=== PATIENT | female | born 1960 | race Caucasian/White ===

== ENCOUNTER 2024-04-01 07:33 | Emergency (ER) | payer MEDICARE ==
[~2024-04-01] VITALS: Ht 149.9 cm; Wt 78.7 kg
[2024-04-01] MEDS: CLINDAMYCIN IVPB 600MG/50ML 50 ML IV STA (07:38)
[2024-04-01] MEDS: Solu-medROL 125MG VIAL IVP ONE (08:00)
[2024-04-01 08:57] LABS: BASOPHILS # (AUTO) 0.06 K/uL (0.00-0.20); BASOPHILS % (AUTO) 0.3 % (0.0-5.0); EOSINOPHILS # (AUTO) 0.03 K/uL (0.00-0.70); EOSINOPHILS % (AUTO) 0.1 % (0.0-8.0); HEMATOCRIT 32.6 % (36-48); IMMATURE GRANULOCYTE ABSOLUTE 0.33 K/uL (0-1); LYMPHOCYTES # (AUTO) 0.8 K/uL (1.0-4.8); LYMPHOCYTES % (AUTO) 3.3 % (21.0-51.0); MEAN CORPUSCULAR HEMOGLOBIN 28.7 pg (27.0-33.0); MEAN CORPUSCULAR HGB CONC 34.4 g/dL (32.0-36.0); MEAN CORPUSCULAR VOLUME 83.6 fL (79-99); MONOCYTES # (AUTO) 1.2 K/uL (0.1-1.0); MONOCYTES % (AUTO) 5.4 % (3.0-13.0); NEUTROPHILS # (AUTO) 20.4 K/uL (1.8-7.7); NEUTROPHILS % (AUTO) 89.5 % (40.0-77.0); PLATELET COUNT (AUTO) 383 K/uL (130-400); RED CELL DISTRIBUTION WIDTH 13.2 % (11.0-15.5); WHITE BLOOD COUNT (AUTO) 22.8 K/uL (4.8-10.8)
[2024-04-01 09:09] LABS: CREATININE 1.3 mg/dL (0.5-1.0); POTASSIUM 4.3 mmol/L (3.5-5.1)
--- NOTE | 2024-04-01 09:25 | ERN ---
General Chief Complaint: Face Pain/Problem Stated Complaint: L FACE SWELLING Time Seen by MD: 07:34 Source: patient History of Present Illness Initial Comments Patient is a 64-year-old female coming in to be evaluated for left facial swelling. Per patient she had a tooth extracted and started noticing swelling couple of days shortly after. Patient states that she has some discomfort in the left facial area in his unable to completely open her mouth. Allergies: Coded Allergies: No Known Drug Allergies (Unverified Allergy, Unknown, 04/01/24) Past Medical History Past Medical History: GERD, Hypertension Past Surgical History: Cholecystectomy Female( History) : 0 Para: 0 Aborts: 0 ROS Dictation CONSTITUTIONAL: No chills, no fever, no weakness, no diaphoresis, no malaise. HEAD/FACE: No signs of trauma. EENT: No eye pain, no blurred vision, no tearing, no double vision, no ear pain, no ear discharge, no nose pain, no nasal congestion, no throat pain, no throat swelling, no mouth pain. RESPIRATORY: No cough, no orthopnea, no SOB, no stridor, no wheezing. CARDIOVASCULAR: No chest pain, no edema, no palpitations, no syncope. GASTROINTESTINAL/ABDOMINAL: No abdominal pain, no constipation, no diarrhea, no nausea, no vomiting. GENITOURINARY: No abnormal discharge, no dysuria, no frequent urination, no hematuria. No complaints of pain in the genitals. MUSCULOSKELETAL: No back pain, no gout, no joint pain, no joint swelling, no muscle pain, no muscle stiffness, no neck pain. INTEGUMENTARY: No change in color, no change in hair/nails, no dryness, no lesion, no lumps, no rash. NEUROLOGICAL/PSYCH: No anxiety, not depressed, no emotional problem, no headache, no numbness, no pre-existing deficit, no history of seizures, no tremors, no weakness. HEMATOLOGIC/LYMPHATIC: Not anemic, no history of blood clots, no apparent bleeding, no bruising, glands not swollen. All Systems Negative, Except as Noted. Physical Exam Physical Exam Dictation VITAL SIGNS: Reviewed. GENERAL APPEARANCE: Alert, oriented x3, no acute distress, obese. HEAD AND FACE: Non-traumatic. Left facial swelling EYES: PERRL, pink conjunctivas, eyelid no trauma, anterior chamber clear. EARS: Pinnas intact and no signs of trauma or erythema. Ear canals clear and no discharge. TMs no erythema. NOSE: No discharge, no bleeding. OROPHARYNX: Mouth normal, teeth no caries, tongue pink. Pharynx clear, no erythema. Tonsils no exudates, no abscesses noted. Mucous membrane moist. NECK: Supple, non-tender, no thyromegaly, no masses, no JVD, no bruits. BREAST: Deferred. CHEST: No tenderness, no crepitus, no paradoxical movement, no retractions. LUNGS: Clear, well-ventilated, symmetric, no rales, no wheezing, no rhonchi, no stridor, good breath sounds bilaterally. HEART: Regular rate, regular rhythm, no murmur, no gallops. VASCULAR: No peripheral edema. ABDOMEN: Soft, positive bowel sounds, nondistended, no guarding, nontender, no rebound, no masses no hepatomegaly, no splenomegaly, no Puentes's sign, no hernias. RECTAL: Deferred. GENITAL: Deferred. NEUROLOGICAL: Normal speech, gross motor function intact, gross sensory function intact. MUSCULOSKELETAL: Neck nontender, full range of motion, back nontender, full range of motion. EXTREMITIES: Nontender, full range of motion. SKIN: Color pink, dry, no turgor, no rash, no lacerations, no abrasions, no contusions. LYMPHATICS: Deferred. Results Laboratory and Microbiology Lab and Micro Result Laboratory Tests Test 04/01/24 08:40 04/01/24 09:42 04/01/24 11:00 White Blood Count 22.8 K/uL (4.8-10.8) H Red Blood Count 3.90 MIL/uL (4.00-5.50) L Hemoglobin 11.2 g/dL (12.0-16.0) L Hematocrit 32.6 % (36-48) L Mean Corpuscular Volume 83.6 fL (79-99) Mean Corpuscular Hemoglobin 28.7 pg (27.0-33.0) Mean Corpuscular Hemoglobin Concent 34.4 g/dL (32.0-36.0) Red Cell Distribution Width 13.2 % (11.0-15.5) Platelet Count 383 K/uL (130-400) Mean Platelet Volume 8.8 fL (7.5-10.5) Immature Granulocyte % (Auto) 1.4 % (0-1) H Neutrophils (%) (Auto) 89.5 % (40.0-77.0) H Lymphocytes (%) (Auto) 3.3 % (21.0-51.0) L Monocytes (%) (Auto) 5.4 % (3.0-13.0) Eosinophils (%) (Auto) 0.1 % (0.0-8.0) Basophils (%) (Auto) 0.3 % (0.0-5.0) Neutrophils # (Auto) 20.4 K/uL (1.8-7.7) H Lymphocytes # (Auto) 0.8 K/uL (1.0-4.8) L Monocytes # (Auto) 1.2 K/uL (0.1-1.0) H Eosinophils # (Auto) 0.03 K/uL (0.00-0.70) Basophils # (Auto) 0.06 K/uL (0.00-0.20) Absolute Immature Granulocyte (auto 0.33 K/uL (0-1) Segmented Neutrophils % 72 % (40-70) H Band Neutrophils % 19 % (0-2) H Lymphocytes % (Manual) 4 % (22-44) L Monocytes % (Manual) 5 % (2-9) Nucleated Red Blood Cells 0.0 % (0.0-0.19) Differential Comment MANUAL DIFFERENTIAL White Cell Morphology Comment CONSISTENT W/DIFF Platelet Morphology Comment ADEQUATE Red Blood Cell Morphology ANISO 1+ Sodium Level 126 mmol/L (136-145) L Potassium Level 4.3 mmol/L (3.5-5.1) Chloride Level 91 mmol/L (101-111) L Carbon Dioxide Level 22 mmol/L (21-32) Blood Urea Nitrogen 19 mg/dL (7-18) H Creatinine 1.3 mg/dL (0.5-1.0) H Glomerular Filtration Rate Calc 45 mL/min (>90) Random Glucose 142 mg/dL (70-105) H Total Calcium 10.3 mg/dL (8.5-10.1) H Lactic Acid Level 1.2 mmol/L (0.8-2.5) Total Creatine Kinase 85 U/L (21-232) Troponin I High Sensitivity 8 ng/L (4-50) Urine Color YELLOW (YELLOW) Urine Appearance CLEAR (CLEAR) Urine pH 6.0 (5.0-8.0) Urine Specific [place] 1.033 (1.001-1.031) Urine Protein 20 mg/dL (NEGATIVE) H Urine Glucose (UA) NEGATIVE mg/dL (NEGATIVE) Urine Ketones 5 mg/dL (NEGATIVE) H Urine Occult Blood SMALL (NEGATIVE) H Urine Nitrate NEGATIVE (NEGATIVE) Urine Bilirubin NEGATIVE mg/dL (NEGATIVE) Urine Urobilinogen 0.2 mg/dL (0.2-1.0) Urine Leukocyte Esterase NEGATIVE Liset/uL Urine RBC 2-5 /HPF (0-1) H Urine WBC 2-5 /HPF (0-1) H Urine Squamous Epithelial Cells RARE /HPF (0-2) Urine Bacteria RARE /HPF (None Seen) Labs Reviewed?: Yes EKG/XRAY/US/CT/MRI CT Scan Comment [address] [place] [address] IMAGING REPORT Signed PATIENT: SALLY PULLIAM MR#: [id number] : 1960 SEX: F AGE: 64 LOCATION: [facility] ORDER 0 STATUS: [facility] REPORT#: [id number] SERVICE 8 REASON: left facial swelling ORDERING PHYSICIAN: BLANE GA MD PROCEDURE: NKSOFTI W - CT NECK SOFT TISS W/CONTRAST CT NECK SOFT TISS W/CONTRAST REASON: left facial swelling COMPARISON: None TECHNIQUE: Axial images are obtained from skull base through the thoracic inlet following IV contrast, 50 cc Omnipaque 350. FINDINGS: There is diffuse left-sided soft tissue swelling. This is epicentered lateral to the posterior portion of the mandible and extends to inferior to the angle of the mandible. The swelling is anterior to the sternocleidomastoid muscle, the swelling also involves the left parotid gland. There is a poorly defined area of decreased attenuation beginning lateral to the posterior body of the mandible. This extends posteriorly and inferiorly, wrapping around the angle of the mandible. There is poorly defined low-attenuation medial or in side of the left body of the mandible. This appears to cross midline anteriorly, there is a better defined focal fluid collection base of the tongue and inferiorly on the right. This measures 2.2 x 1.9 cm axial dimension and 1.8 cm superior to inferior. Tonsillar soft tissues appear normal as do parapharyngeal soft tissues. There is marked enlargement of the right lobe of the thyroid gland, at 3.8 x 5.3 cm, this contains coarse calcifications, this extends inferiorly into the superior mediastinum, findings are consistent with goiter. Airway structures appear intact. Lung apices are clear. Exam appears otherwise unremarkable. IMPRESSION: 1. Extensive left-sided soft tissue swelling along the mandible. 2. There is poorly defined decreased attenuation present below inside and outside of the mandible at the level of the angle, best defined extending anteriorly between the base of the tongue and mandible, appearance is consistent with phlegmon or developing abscess. 3. There is a well-defined focal abscess on the right measuring 1.9 x 2.2 x 1.8 cm, present to just medial and inferior to the mandible lateral to the base of the tongue. 4. Marked enlarged right lobe of the thyroid with coarse calcifications, probable goiter, thyroid ultrasound recommended for full evaluation. DICTATED BY: DILLAN PEOPLES MD DATE: 04/01/241017 ELECTRONICALLY SIGNED BY: DILLAN PEOPLES MD DATE: 04/01/[address] [address] IMAGING REPORT Signed PATIENT: SALLY PULLIAM MR#: [id number] : 1960 SEX: F AGE: 64 LOCATION: [facility] ORDER 0 STATUS: [facility] REPORT#: [id number] SERVICE 8 REASON: left facial swelling ORDERING PHYSICIAN: BLANE GA MD PROCEDURE: MAXFACI W - CT MAXILLOFACIAL W/CONTRAST CT MAXILLOFACIAL W/CONTRAST REASON: left facial swelling COMPARISON: None TECHNIQUE: Axial images are obtained from skull base to through the mandible and base of the neck. Sagittal and coronal reconstruction images were performed. Exam was performed following IV contrast, 50 cc Omnipaque 350. FINDINGS: There is extensive soft tissue swelling surrounding the left ankle of the mandible. There are some poorly defined decreased attenuation both medial and lateral to the angle of the mandible, this may represent a phlegmon and/or developing abscess, there is no discrete drainable abscess present at this time. There is a well described focal fluid collection lateral base of the tongue on the right, inferior to the body of the mandible, 1.5 x 1.9 x 2.0 cm. There are no other discrete focal fluid collections. There is diffuse swelling and subcutaneous soft tissues. The airway appears intact. Tonsillar fossa is appear unremarkable. Remaining facial soft tissues appear normal. Marked enlargement of the right lobe of the thyroid is again noted, only partially visualized, thyroid ultrasound recommended in this regard. IMPRESSION: 1. Well defined focal fluid collection in the in the floor the mouth on the right 1.9 x 2.0 cm, consistent with abscess. 2. Marked soft tissue swelling on the left with poorly defined areas of decreased attenuation, consistent with phlegmon and possible developing abscess, no drainable collections identified on the left. 3. Enlarged right lobe of the thyroid consistent with goiter, only partially visualized on this exam. DICTATED BY: DILLAN PEOPLES MD DATE: 04/01/24 1023 ELECTRONICALLY SIGNED BY: DILLAN PEOPLES MD DATE: 04/01/24 1031 MDM MDM: Differential diagnosis: Status post to be six traction, sepsis, mandibular abscess on the right and left mandibular abscess as well, right lobe thyroid calcification Rationale: Tests considered and ordered secondary to shared decision making include: labs, ECG and radiology Previous outside records reviewed: Old ER visits. Risk of complication and/or morbidity or mortality of patient management: None Medications-Per medication reconciliation Need for hospitalization: Patient does meet criteria for hospitalization. Need for emergency major/minor surgery: No There are no social concerns with this patient. Prescription drug management Prescriptions will include symptomatic care Patient's prior external medical records from other ER visits were reviewed by me as indicated. Prior testing and results from previous visits were reviewed. Prior tests were taken into account with medical decision making and resource utilization, independent historian/historians were used to obtain complete medical history. I independently interpreted the test that were performed, results were reviewed by me and considered findings on radiology if ordered. Medical management and examination interpretation discussions were had by me with other qualified healthcare professionals as indicated for the patient's care. I advised patient on current findings which are sepsis and mandibular abscess bilateral current plan is to admit but due to the fact that there is no oral maxillary [place] patient will be transferred to ED Course Orders Procedure Category Date Status Time Cbc With Differential LAB 04/01/24 Complete 07:37 Basic Metabolic Panel LAB 04/01/24 Complete 07:37 Methylprednisolone PHA 04/01/24 Complete Succ 125mg (Solu-Medr 08:00 Clindamycin Ivpb PHA 04/01/24 Complete 600mg/50ml (Cleocin 07:[address] 04/01/24 Resulted W/Contrast 09:[address] T[address] CT 04/01/24 Resulted W/Contrast 09:19 Blood Cult VERNON 04/01/24 In Process 09:26 Urinalysis Profile LAB 04/01/24 Complete 09:26 Culture Urine VERNON 04/01/24 In Process 09:26 0.9%Nacl 1000ml (Ns PHA 04/01/24 Complete 1000ml) 09:30 Creatine Kinase, Total LAB 04/01/24 Complete 09:26 Troponin I High LAB 04/01/24 Complete Sensitivity 09:26 Lactic Acid LAB 04/01/24 Complete 09:26 Iohexol (Omnipaque) PHA 04/01/24 Complete 09:50 Manual Differential LAB 04/01/24 Complete 08:40 Vancomycin 1g/250ml PHA 04/01/24 Complete Kit (Vancomycin 1g/2 14:00 Vancomycin Protocol PHA 04/01/24 In Process (Vancomycin Protocol 14:00 Vancomycin 1g/250ml PHA 04/01/24 Complete Kit (Vancomycin 1g/2 15:00 Vancomycin 1g/250ml PHA 04/02/24 In Process Kit (Vancomycin 1g/2 14:00 Vancomycin Trough LAB 04/03/24 Verified 13:00 Ketorolac PHA 04/01/24 Complete Tromethamine 30mg/Ml 14:30 Current Medications Medications (Trade) Dose Ordered Sig/Guy Route PRN Reason Start Time Stop Time Status Last Admin Dose Admin Clindamycin HCl/ Dextrose 50 ml @ 100 mls/hr Q8H STAT IV 04/01/24 07:38 04/01/24 08:07 DC 04/01/24 07:38 Iohexol (Omnipaque) 35,000 mg STK-MED ONCE IV 04/01/24 09:50 04/01/24 09:50 DC Ketorolac Tromethamine (toRADol) 30 mg ONCE ONCE IVP 04/01/24 14:30 04/01/24 14:31 DC 04/01/24 14:47 Methylprednisolone Sodium Succinate (Solu-medROL 125MG) 125 mg ONCE ONCE IVP 04/01/24 08:00 04/01/24 08:01 DC 04/01/24 08:00 Sodium Chloride 2,361 ml @ 787 mls/hr ONCE ONCE IV 04/01/24 09:30 04/01/24 12:29 DC 04/01/24 10:14 Vancomycin HCl 250 ml @ 125 mls/hr Q24H IV 04/02/24 14:00 04/12/24 13:59 Vancomycin HCl 250 ml @ 250 mls/hr ONCE ONCE IV 04/01/24 15:00 04/01/24 15:59 DC Vancomycin HCl (Vancomycin Protocol) 1 each AD IV 04/01/24 14:00 04/15/24 13:59 Vancomycin HCl (Vancomycin 1g/ 250ml Kit) 1 gm ONCE ONCE IV 04/01/24 14:00 04/01/24 14:01 DC 04/01/24 13:58 Vital Signs Date Time Temp Pulse Resp B/P (MAP) Pulse Ox O2 Delivery O2 Flow Rate FiO2 04/01/24 18:10 98.8 87 18 110/62 97 Room Air* 0 04/01/24 16:00 98.4 98 18 107/53 99 Room Air* 0 04/01/24 14:21 99.0 104 18 116/65 97 Room Air* 0 04/01/24 12:00 101 18 112/65 97 Room Air* 0 04/01/24 11:00 99.7 100 18 110/66 99 Room Air* 0 04/01/24 09:00 99.7 104 18 104/62 98 Room Air* 0 04/01/24 07:35 100.2 110 16 113/60 98 Room Air* 0 04/01/24 07:35 100.6 110 16 113/60 98 Room Air 0 DX & DISP Disposition: Other(Comment) (PATIENT CARE TRANSITIONED TO DR. NO) Departure Condition: Stable Referrals: NONE (PCP) BLANE GA MD Apr 01, 2024 09:25
[2024-04-01] MEDS ORDERED: IOHEXOL 350 MG/ML 100ML INFUS..BTL IV ONE (09:50)
[2024-04-01] MEDS: [UNRECOGNIZED DRUG - OTHER] IV ONE (10:14)
--- NOTE | 2024-04-01 10:26 | HMCIMG ---
CT NECK SOFT TISS W/CONTRAST REASON: left facial swelling COMPARISON: None TECHNIQUE: Axial images are obtained from skull base through the thoracic inlet following IV contrast, 50 cc Omnipaque 350. FINDINGS: There is diffuse left-sided soft tissue swelling. This is epicentered lateral to the posterior portion of the mandible and extends to inferior to the angle of the mandible. The swelling is anterior to the sternocleidomastoid muscle, the swelling also involves the left parotid gland. There is a poorly defined area of decreased attenuation beginning lateral to the posterior body of the mandible. This extends posteriorly and inferiorly, wrapping around the angle of the mandible. There is poorly defined low-attenuation medial or in side of the left body of the mandible. This appears to cross midline anteriorly, there is a better defined focal fluid collection base of the tongue and inferiorly on the right. This measures 2.2 x 1.9 cm axial dimension and 1.8 cm superior to inferior. Tonsillar soft tissues appear normal as do parapharyngeal soft tissues. There is marked enlargement of the right lobe of the thyroid gland, at 3.8 x 5.3 cm, this contains coarse calcifications, this extends inferiorly into the superior mediastinum, findings are consistent with goiter. Airway structures appear intact. Lung apices are clear. Exam appears otherwise unremarkable. IMPRESSION: 1. Extensive left-sided soft tissue swelling along the mandible. 2. There is poorly defined decreased attenuation present below inside and outside of the mandible at the level of the angle, best defined extending anteriorly between the base of the tongue and mandible, appearance is consistent with phlegmon or developing abscess. 3. There is a well-defined focal abscess on the right measuring 1.9 x 2.2 x 1.8 cm, present to just medial and inferior to the mandible lateral to the base of the tongue. 4. Marked enlarged right lobe of the thyroid with coarse calcifications, probable goiter, thyroid ultrasound recommended for full evaluation.
--- NOTE | 2024-04-01 10:31 | HMCIMG ---
CT MAXILLOFACIAL W/CONTRAST REASON: left facial swelling COMPARISON: None TECHNIQUE: Axial images are obtained from skull base to through the mandible and base of the neck. Sagittal and coronal reconstruction images were performed. Exam was performed following IV contrast, 50 cc Omnipaque 350. FINDINGS: There is extensive soft tissue swelling surrounding the left ankle of the mandible. There are some poorly defined decreased attenuation both medial and lateral to the angle of the mandible, this may represent a phlegmon and/or developing abscess, there is no discrete drainable abscess present at this time. There is a well described focal fluid collection lateral base of the tongue on the right, inferior to the body of the mandible, 1.5 x 1.9 x 2.0 cm. There are no other discrete focal fluid collections. There is diffuse swelling and subcutaneous soft tissues. The airway appears intact. Tonsillar fossa is appear unremarkable. Remaining facial soft tissues appear normal. Marked enlargement of the right lobe of the thyroid is again noted, only partially visualized, thyroid ultrasound recommended in this regard. IMPRESSION: 1. Well defined focal fluid collection in the in the floor the mouth on the right 1.9 x 2.0 cm, consistent with abscess. 2. Marked soft tissue swelling on the left with poorly defined areas of decreased attenuation, consistent with phlegmon and possible developing abscess, no drainable collections identified on the left. 3. Enlarged right lobe of the thyroid consistent with goiter, only partially visualized on this exam.
[2024-04-01 10:51] LABS: BAND NEUTROPHILS % (MANUAL) 19 % (0-2); LYMPHOCYTES % (MANUAL) 4 % (22-44); MAN.DIFF COMMENT-IMPRESSION MANUAL DIFFERENTIAL; MONOCYTES % (MANUAL) 5 % (2-9); PLATELET MORPHOLOGY COMMENT ADEQUATE; SEGMENTED NEUTROPHILS % 72 % (40-70); TOTAL CELLS COUNTED 100; WBC MORPHOLOGY CONSISTENT W/DIFF
[2024-04-01 11:29] LABS: APPEARANCE,URINE CLEAR (CLEAR); BILIRUBIN,URINE NEGATIVE (NEGATIVE); COLOR,URINE YELLOW (YELLOW); GLUCOSE, URINE (UA) NEGATIVE (NEGATIVE); KETONES,URINE 5 mg/dL (NEGATIVE); LEUKOCYTE ESTERASE ,URINE NEGATIVE Leu/uL (NEGATIVE); NITRATE,URINE NEGATIVE (NEGATIVE); OCCULT BLOOD,URINE SMALL (NEGATIVE); PROTEIN,URINE 20 mg/dL (NEGATIVE); UROBILINOGEN,URINE 0.2 mg/dL (0.2-1.0)
[2024-04-01 11:30] LABS: ADD UA MICROSCOPIC YES
[2024-04-01 11:38] LABS: BACTERIA,URINE RARE /HPF (None Seen); MUCUS,URINE RARE LPF (None Seen); SQUAMOUS EPITHELIAL CELL,UR RARE /HPF (0-2)
[2024-04-01] MEDS: VANCOMYCIN KIT 1 GM/250 ML IV.KIT IV ONE (13:58)
[2024-04-01] MEDS ORDERED: VANCOMYCIN PROTOCOL PER PHARMACY IV SCH (14:00)
[2024-04-01] MEDS: VANCOMYCIN 1G/250ML KIT 250 ML IV ONE (14:06)
[2024-04-01] MEDS: ketOROlac 30MG VIAL (30MG/ML) IVP ONE (14:47)
--- NOTE | 2024-04-01 23:08 | NUR ---
INCREASE IN SWELLING NOTED TO LEFT FACIAL, ED MD MADE AWARE
--- NOTE | 2024-04-01 23:10 | NUR ---
DR. NO AT BEDSIDE AT THIS TIME TO ASSESS PT
[2024-04-01] MEDS: morPHINE 2 MG SYG IVP ONE (23:20)
--- NOTE | 2024-04-02 00:05 | NUR ---
TRANSFER REQUEST INITIATED AT [facility] [place]. DENIED DUE TO LACK OF [employer] COVERAGE.
--- NOTE | 2024-04-02 00:10 | NUR ---
TRANSFER REQUEST INITIATED AT [facility]. DENIED DUE TO LACK OF CAPACITY, WAS ADVISED TO CALL BACK LATER IN THE DAY FOR AVAILABILITY.
--- NOTE | 2024-04-02 00:42 | NUR ---
TRANSFER REQUEST INITIATED AT [facility].
--- NOTE | 2024-04-02 01:20 | NUR ---
PT TRANSFER ACCEPTED AT [facility] AT THIS TIME. ACCEPTING DOCTOR IS DR. YANN HINES. ACCEPTING COMMUNITY RESOURCE CONSULTANT IS ALEENA CAMARENA RN.
--- NOTE | 2024-04-02 02:00 | NUR ---
[facility] WILL BE ABLE TO TRANSFER THE PATIENT AFTER 0800.
--- NOTE | 2024-04-02 08:07 | NUR ---
GAVE REPORT TO EVELYNE HANSEN AT [facility] ER .
--- NOTE | 2024-04-02 08:08 | NUR ---
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
--- NOTE | 2024-04-02 09:01 | NUR ---
[facility] #[id number], PT being Tx to [facility]; PT shows no sign of distress or discomfort at time of Tx,
[2024-04-02 09:03] VITALS: BP 116/62; PULSE 94; RESP 18; TEMP 98.1; O2SAT 98
[2024-04-02] MEDS ORDERED: VANCOMYCIN 1G/250ML KIT 250 ML IV SCH (14:00)
== END 2024-04-02 09:05 | disposition short-term general hospital (02) ==
LOC: EDH 07:33
DX: R22.0 Localized swelling, mass and lump, head (principal); K21.9 Gastro-esophageal reflux disease without esophagitis; I10 Essential (primary) hypertension; Z90.49 Acquired absence of other specified parts of digestive tract
CPT/HCPCS: 99285; 70487; 96366 ×2; 96365; 96375; 96367; 82550; 84484; 80048; 85025; 87040 ×2; 87086; 83605; 81001; 36415; 70491; J2270; J7030; J2919; J1885; J3370; J3490; Q9967

== ENCOUNTER 2024-05-02 10:19 | Emergency (ER) | payer MEDICARE ==
[~2024-05-02] VITALS: Ht 149.9 cm; Wt 68.0 kg
--- NOTE | 2024-05-02 10:26 | ERN ---
ED Note History of Present Illness Stated Complaint: STITCHES REMOVAL Chief Complaint: Suture/Staple Removal Time Seen by MD: 10:20 Dictation: PATIENT IS A 64-YEAR-OLD FEMALE HERE WITH HER WITH REQUEST FOR REMOVING SUTURES. SHE HAS NOT INCISION LINE TO HER ANTERIOR NECK THAT WAS DONE WHILE SHE WAS BEING HOSPITALIZED AT, [facility] FOR SOME KIND OF EMERGENCY SURGERY BEFORE THE OF THE YEAR. SHE STATES SHE DOES NOT HAVE ANY RECORDS WITH HER AT THIS TIME HOWEVER IS REQUESTING THAT THE SUTURES BE REMOVED. SHE HAS HAD NO FEVER NO CHILLS NO NAUSEA VOMITING SHE HAS A OBVIOUS TRANSVERSE ANTERIOR NECK INCISION THAT IS WELL APPROXIMATED WITH A PRIOR TRACHEOSTOMY SITE. SHE STATES SHE HAD BEEN ON A VENTILATOR AT [facility] SHE HAS NOT FOLLOW UP WITH THEM OR HER LOCAL DOCTOR. PATIENT HAS A INSTRUCTIONS FROM [facility] IN THE [facility]ON[employer]ATES [place] THAT SUTURES MAY BE REMOVED BY HER PRIMARY CARE DOCTOR TWO WEEKS AFTER THEY WERE PLACED PER , THE INCISION WAS DONE ON 04/15. Allergies: Coded Allergies: No Known Drug Allergies (Unverified Allergy, Unknown, 04/01/24) Past Medical History Past Medical History: GERD, Hypertension Surgical History: Cholecystectomy History: Not Applicable : 0 Para: 0 Aborts: 0 RN Note Reviewed/Agreed w/PFSH: Yes Review of System Dictation CONSTITUTIONAL: NEGATIVE EXCEPT FOR HPI HEAD/FACE: NEGATIVE EXCEPT FOR HPI EENT: NEGATIVE EXCEPT FOR HPI RESPIRATORY: NEGATIVE EXCEPT FOR HPI GASTROINTESTINAL/ABDOMINAL: NEGATIVE EXCEPT FOR HPI GENITOURINARY: NEGATIVE EXCEPT FOR HPI MUSCULOSKELETAL: NEGATIVE EXCEPT FOR HPI INTEGUMENTARY: NEGATIVE EXCEPT FOR HPI TRANSVERSE ANTERIOR NECK INCISION WITH APPROXIMATELY SILK SUTURE 14 NEUROLOGICAL/PSYCH: NEGATIVE EXCEPT FOR HPI HEMATOLOGIC/LYMPHATIC: NEGATIVE EXCEPT FOR HPI ALL SYSTEMS NEGATIVE, EXCEPT NOTED ABOVE. 13 POINT REVIEW OF SYSTEMS ASSESSED AND ALL NEGATIVE EXCEPT FOR ABOVE. Initial Vital Sign VS Vital Signs Date Time Temp Pulse Resp B/P (MAP) Pulse Ox O2 Delivery O2 Flow Rate FiO2 05/02/24 10:22 97.9 82 18 121/68 100 Room Air Physical Exam Dictation VITAL SIGNS REVIEWED GENERAL APPEARANCE: ALERT, ORIENTED X 3, NO ACUTE DISTRESS, WELL DEVELOPED, NOURISHED. HEAD AND FACE: NON-TRAUMATIC. EYES: PERRL, PINK CONJUNCTIVAS, EYELID NO TRAUMA, ANTERIOR CHAMBER WITH ARCUS SENILIS. EARS: PINNAS INTACT AND NO SIGNS OF TRAUMA OR ERYTHEMA EAR CANALS CLEAR AND NO DISCHARGE TM NO ERYTHEMA NOSE: NO DISCHARGE, NO BLEEDING. OROPHARYNX: MOUTH NORMAL, TONGUE PINK, PHARYNX CLEAR,NO ERYTHEMA, TONSILS NO EXUDATES, NO ABSCESSES NOTED, MUCOUS MEMBRANE MOIST NECK: SUPPLE, NON-TENDER, NO THYROMEGALY, NO MASSES, NO JVD, NO BRUITS BREAST:DEFERRED CHEST:NO TENDERNESS, NO CREPITUS, NO PARADOXICAL MOVEMENT, NO RETRACTIONS LUNGS:CLEAR, WELL-VENTILATED, SYMMETRIC, NO RALES, NO WHEEZING, NO RHONCHI, NO STRIDOR, GOOD BREATH SOUNDS BILATERALLY HEART: REGULAR RATE, REGULAR RHYTHM, NO MURMUR, NO GALLOPS VASCULAR: NO PERIPHERAL EDEMA, ABDOMEN: SOFT, POSITIVE BOWEL SOUNDS, NONDISTENDED, NO GUARDING, NONTENDER, NO REBOUND, NO MASSES NO HEPATOMEGALY, NO SPLENOMEGALY, NO BENITES'S SIGN, NO HERNIAS. RECTAL: DEFERRED GENITAL: DEFERRED NEUROLOGICAL: NORMAL SPEECH, MOTOR FUNCTION INTACT, SENSORY FUNCTION INTACT MUSCULOSKELETAL: NECK NONTENDER, FULL RANGE OF MOTION, BACK NONTENDER, FULL RANGE OF MOTION, EXTREMITIES: NONTENDER, FULL RANGE OF MOTION SKIN: COLOR PINK, DRY, WELL GRANULATED TRANSVERSE ANTERIOR NECK INCISION WITH14 SILK SUTURES NO INFLAMMATION NO SWELLING LYMPHATIC: DEFERRED Results (Laboratory/Radiology) Labs Reviewed?: Yes ED Course ED Course Vital Signs Date Time Temp Pulse Resp B/P (MAP) Pulse Ox O2 Delivery O2 Flow Rate FiO2 05/02/24 10:22 97.9 82 18 121/68 100 Room Air Medical Decision Making MDM MEDICAL DISCHARGE MAKING BASED ON ENCOUNTER FOR REMOVAL OF SILK SUTURES DUE TO A SURGERY AT [facility]. SURGERY DONE ON 04/15 WRITTEN INSTRUCTIONS FROM [facility] INSTRUCTED TO HAVE SUTURES REMOVED BY PRIMARY CARE [id number] DAYS AFTER SURGERY. SUTURES WERE REMOVED WITH MILD DEHISCENCE TO THE RIGHT LATERAL ASPECT OF THE INCISION PATIENT AND HER HAS BEEN MADE AWARE OF THIS AND WE WILL FOLLOW UP WITH HER DOCTOR Procedure Procedure Dictation: PROCEDURE EXPLAINED TO PATIENT AND THEY AGREED TO PROCEED THEY WERE BOTH MADE AWARE THAT THERE WAS RISK OF DEHISCENCE AFTER REMOVAL OF THE SUTURES. THEY WANTED THE SUTURES REMOVED 14 SILK SUTURES WERE REMOVED INTACT RIGHT LATERAL DEHISCENCE NOTED TO INCISION LINE. NO DRAINAGE AND PATIENT TOLERATED WELL DX & DISP Disposition: Discharge Departure Impression: Primary Impression: Encounter for removal of sutures Condition: Stable Additional Instructions: FOLLOW-UP WITH PRIMARY CARE PROVIDER IN 1 TO 2 DAYS. TAKE MEDICATIONS DIRECTED HERE IN THE EMERGENCY ROOM. OKAY TO CONTINUE HOME MEDICATIONS UNLESS OTHERWISE DISCUSSED DURING YOUR VISIT IN THE EMERGENCY ROOM TODAY. RETURN TO YOUR NEAREST EMERGENCY ROOM IF SYMPTOMS WORSEN OR IF THERE IS NO IMPROVEMENT. CALL 911 IF YOU NEED IMMEDIATE ASSISTANCE. TAKE TYLENOL OR MOTRIN [id number] NEEDED AND IF NO CONTRAINDICATIONS ARE PRESENT. INCREASE ORAL HYDRATION. A WOUND CULTURE OR URINE CULTURE WAS ORDERED HERE IN THE EMERGENCY ROOM DEPARTMENT PLEASE FOLLOW-UP WITH PRIMARY CARE PROVIDER AND ADVISE THEM TO GET REPEAT PORTS FROM OUR FACILITY. IF YOU HAD ANY EYAD WRAP/SPLINTS THAT WERE APPLIED HERE, PLEASE DO NOT REMOVE THEM UNTIL YOU SEE YOUR PRIMARY CARE OR SPECIALTY. OKAY TO WASH AREA WITH SOAP AND WATER DRY THOROUGHLY. FOLLOW UP WITH YOUR PRIMARY CARE DOCTOR Referrals: NONE (PCP) Time of Disposition: 11:03 I have reviewed the case, and I agree with, Diagnosis and Plan RONY CARNEY NP May 02, 2024 10:26
[2024-05-02 10:40] VITALS: BP 121/68; PULSE 82; RESP 18; TEMP 97.8; O2SAT 100
== END 2024-05-02 11:13 | disposition home or self-care (01) ==
LOC: EDH 10:19
DX: Z48.817 Encounter for surgical aftercare following surgery on the skin and subcutaneous tissue (principal); I10 Essential (primary) hypertension; K21.9 Gastro-esophageal reflux disease without esophagitis; Z90.49 Acquired absence of other specified parts of digestive tract
CPT/HCPCS: 99282